=== PATIENT | male | born 1970 | race Two or more races ===

== ENCOUNTER 2023-11-06 17:59 | Emergency (ER) | payer MEDICAID ==
[~2023-11-06] VITALS: Ht 162.6 cm; Wt 77.8 kg
[2023-11-06 18:16] VITALS: BP 145/92; PULSE 85; RESP 17; TEMP 98
[2023-11-06 19:41] VITALS: O2SAT 98
[2023-11-06] MEDS ORDERED: IBUP-1455 PO (20:01)
[2023-11-06] MEDS: KETOROLAC TROMETH 30 MG/ML 1ML VIAL IM ONE (20:02)
== END 2023-11-06 20:17 | disposition home or self-care (01) ==
LOC: ER 17:59
DX: S86.112A Strain of other muscle(s) and tendon(s) of posterior muscle group at lower leg level, left leg, initial encounter (principal); W51.XXXA Accidental striking against or bumped into by another person, initial encounter; Y93.89 Activity, other specified; Y92.89 Other specified places as the place of occurrence of the external cause; Y99.8 Other external cause status
CPT/HCPCS: 96372; 99283; J1885